=== PATIENT | female | born 1995 | race Caucasian/White ===

== ENCOUNTER 2018-02-18 16:01 | Emergency (ER) | payer OTHER ==
[~2018-02-18] VITALS: Ht 162.6 cm; Wt 75.8 kg
[2018-02-18 17:40] LABS: HEMATOCRIT 40.7 % (36.0-46.0); HEMOGLOBIN 14.3 G/DL (11.9-15.5); MCH 31.6 PG (29.0-34.0); MCHC 35.1 G/DL (30.0-36.0); PLATELET COUNT 191 K/uL (156-360); RBC DIS.WIDTH-CV 12.6 % (11.8-14.6); RBC DIS.WIDTH-SD 41.4 % (39-53); RED BLOOD COUNT 4.52 M/uL (3.80-5.20)
[2018-02-18 17:52] LABS: CHLORIDE 111 mEq/L (99-109); POTASSIUM 4.1 mEq/L (3.7-5.4); SODIUM 143 mEq/L (136-147)
[2018-02-18 17:53] LABS: GLUCOSE 88 mg/dL (70-99)
[2018-02-18 17:57] LABS: CREATININE 0.7 mg/dL (0.6-1.3); GFR ESTIMATE (CALCULATED) > 59 mL/min/; SERUM ETHYL ALCOHOL < 10 mg/dL
[2018-02-18 17:59] LABS: UREA NITROGEN (BUN) 12 mg/dL (9-23)
[2018-02-18 18:00] LABS: SALICYLATE < 5.0 MG/DL (15-30)
[2018-02-18 18:01] LABS: ACETAMINOPHEN (TYLENOL) < 10 mcg/mL (10-30)
[2018-02-18 18:16] LABS: AMPHETAMINE NEGATIVE (500 ng/mL); BARBITURATES NEGATIVE (200 ng/mL); BENZODIAZEPINES NEGATIVE (150 ng/mL); BUPRENORPHINE NEGATIVE (10 ng/mL); COCAINE NEGATIVE (150 ng/mL); METHADONE NEGATIVE (200 ng/mL); METHAMPHETAMINE NEGATIVE (500 ng/mL); OPIATES (MORPHINE) NEGATIVE (100 ng/mL); OXYCODONE NEGATIVE (100 ng/mL); PHENCYCLIDINE NEGATIVE (25 ng/mL); PROPOXYPHENE NEGATIVE (300 ng/mL); THC CANNABINOIDS PRESUMPTIVE POSITIVE (50 ng/mL); TRICYCLIC ANTIDEPRESSANTS NEGATIVE (300 ng/mL)
[2018-02-18] MEDS ORDERED: VISTARIL25 MG PO (19:39)
[2018-02-18 19:50] VITALS: BP 127/81
== END 2018-02-18 19:51 | disposition home or self-care (01) ==
LOC: EME 16:01
PROVIDERS: Emergency Medicine
DX: F32.9 Major depressive disorder, single episode, unspecified (principal)
CPT/HCPCS: 80048; 84999; 85027; 90839; 99281; 99283; G0480